=== PATIENT | female | born 1975 | race Caucasian/White ===

== ENCOUNTER → 2017-04-23 | Outpatient (CLI) | payer BC ==
--- NOTE | 2017-04-27 07:51 | MM ---
Reason for exam: screening (asymptomatic). Last mammogram was performed 4 years and 10 months ago. History: Family history of breast cancer in maternal grandmother at age 88. Saline implants in both breasts, 2012. Physical Findings: A clinical breast exam by your physician is recommended on an annual basis and results should be correlated with mammographic findings. MG Screening Mammo Implant/CAD Bilateral CC, MLO, and ID view(s) were taken. Prior study comparison: July 07, 2012, bilateral digital screening mammo w/CAD. The breast tissue is heterogeneously dense. This may lower the sensitivity of mammography. Retropectoral saline implants. No significant changes when compared with prior studies. ASSESSMENT: Negative, BI-RAD 1 RECOMMENDATION: Routine screening mammogram of both breasts in 1 year.
== END | disposition home or self-care (01) ==
LOC: RADMAMWWP 15:28
PROVIDERS: ATTEND Obstetrics & Gynecology
DX: Z12.31 Encounter for screening mammogram for malignant neoplasm of breast (principal)
CPT/HCPCS: 77067

== ENCOUNTER → 2019-02-27 | Outpatient (CLI) | payer BC ==
--- NOTE | 2019-02-27 13:48 | MR ---
EXAMINATION TYPE: MR lumbar spine wo con DATE OF EXAM: 02/27/2019 COMPARISON: NONE HISTORY: Sacroilitis per order. Low back pain for over 6 months per patient. TECHNIQUE: Multiplanar, multisequence imaging of the lumbar spine is performed without IV contrast. FINDINGS: Sagittal images of the lumbar spine show vertebral body heights and alignment to appear sat isfactory. The intervertebral discs demonstrate normal heights and hydration. Small disc herniation L 5-S1 level. The conus medullaris is low-lying ending at labeled inferior L2 level without suspicious signal or clumping of lumbosacral nerve roots. The bone marrow signal intensity is within normal li mits. Axial images at L5-S1 level show fikb-ga-ihfjgeik facet arthropathy bilaterally with broad-based cent ral disc protrusion minimally effacing the anterior thecal sac. There is mild left greater than right bilateral anterior inferior neural foraminal narrowing. The paraspinal spinal muscle bulk is mainta ined. No suspicious incidental retroperitoneal findings. IMPRESSION: Low-lying conus and Mild degenerative change lumbosacral junction otherwise fairly unrema rkable study
== END | disposition home or self-care (01) ==
LOC: RADMRIMAIN 12:35
PROVIDERS: ATTEND Family Medicine
DX: M47.817 Spondylosis without myelopathy or radiculopathy, lumbosacral region (principal); M46.1 Sacroiliitis, not elsewhere classified
CPT/HCPCS: 72148

== ENCOUNTER → 2020-06-14 | Outpatient (CLI) | payer BC ==
--- NOTE | 2020-06-17 11:19 | MM ---
Reason for exam: screening (asymptomatic). Last mammogram was performed 3 years and 2 months ago. History: Family history of breast cancer in maternal grandmother at age 88. Saline implants in both breasts, 2012. Physical Findings: A clinical breast exam by your physician is recommended on an annual basis and results should be correlated with mammographic findings. MG 3D Screen Mammo Imp/Cad Bilateral CC, MLO, and ID view(s) were taken. Prior study comparison: April 23, 2017, bilateral MG screening mammo implant/CAD. July 07, 2012, bilateral digital screening mammo w/CAD. The breast tissue is heterogeneously dense. This may lower the sensitivity of mammography. There is no discrete abnormality. Bilateral subpectoral implants redemonstrated. ASSESSMENT: Benign, BI-RAD 2 RECOMMENDATION: Routine screening mammogram of both breasts in 1 year.
== END | disposition home or self-care (01) ==
LOC: RADMAMWWP 13:20
PROVIDERS: ATTEND Family Medicine
DX: Z12.31 Encounter for screening mammogram for malignant neoplasm of breast (principal); Z80.3 Family history of malignant neoplasm of breast
CPT/HCPCS: 77063; 77067

== ENCOUNTER → 2022-06-24 | Outpatient (CLI) | payer BC ==
--- NOTE | 2022-06-24 08:29 | MM ---
Reason for Exam: Additional evaluation requested from abnormal screening. Last screening mammogram was performed less than 1 month ago. Patient History: Menarche at age 18. First Full-Term at age 23. Patient has history of breast feeding. 2012, Bilateral Implants. Maternal grandmother had breast cancer, age 88. Risk Values: Rosmery 5 year model risk: 0.7%. NCI Lifetime model risk: 7.9%. Prior Study Comparison: 07/07/2012 Bilateral Screening Mammogram, [facility]. 04/23/2017 Bilateral Screening Mammogram, [facility]. 06/14/2020 Bilateral Screening Mammogram, [facility]. 06/19/2022 Bilateral MG 3D screen mammo imp/cad., [facility]. Tissue Density: The breast tissue is heterogeneously dense. This may lower the sensitivity of mammography. Findings: Analyzed By CAD. Bilateral retropectoral saline implants. No new suspicious mass or calcifications within either breast. Asymmetries within both breasts do not persist with compression. Overall Assessment: Negative, BI-RAD 1 Management: Screening Mammogram of both breasts in 1 year. Electronically signed and approved by: Rasheed Hunt D.O.
== END | disposition home or self-care (01) ==
LOC: RADMAMWWP 07:36
PROVIDERS: ATTEND Obstetrics & Gynecology
DX: R92.8 Other abnormal and inconclusive findings on diagnostic imaging of breast (principal); Z80.3 Family history of malignant neoplasm of breast
CPT/HCPCS: 77062; 77066

== ENCOUNTER → 2023-09-23 | Outpatient (CLI) | payer BC ==
--- NOTE | 2023-10-20 12:41 | MM ---
Reason for Exam: Screening (asymptomatic). Last mammogram was performed 1 year(s) and 3 month(s) ago. Patient History: Menarche at age 18. First Full-Term at age 23. Patient has history of breast feeding. 2013, Bilateral Implants. Maternal grandmother had breast cancer, age 88. Mother had breast cancer, age 71. Risk Values: Rosmery 5 year model risk: 1.5%. NCI Lifetime model risk: 15.9%. Prior Study Comparison: 06/14/2020 Bilateral Screening Mammogram, [facility]. 06/19/2022 Bilateral MG 3D screen mammo imp/cad., [facility]. 06/24/2022 Bilateral MG 3D work up w/cad w/imp [facility], [facility]. Tissue Density: The breasts are heterogeneously dense, which may obscure small masses. Findings: Analyzed By CAD. Bilateral breast implants appear intact. Right breast: There is no suspicious group of microcalcifications or new suspicious mass. Left breast: There is no suspicious group of microcalcifications or new suspicious mass. Overall Assessment: Negative, BI-RAD 1 Management: Screening Mammogram of both breasts in [address] [facility] will attempt to contact patient to return for supplemental views and ultrasound if indicated. Patient should continue monthly self-breast exams. A clinical breast exam by your physician is recommended on an annual basis. This exam should not preclude additional follow-up of suspicious palpable abnormalities. Note on Rosmery scores and lifetime risk: 1. A Rosmery score greater than 3% is considered moderate risk. If this is the case, consider specialist referral to assess eligibility for a risk reducing agent. 2. If overall lifetime risk for the development of breast cancer is 20% or higher, the patient may qualify for future screening with alternating mammogram and breast MRI. Electronically signed and approved by: Jagdeep Ahuja DO
== END | disposition home or self-care (01) ==
LOC: RADMAMWWP 12:00
PROVIDERS: ATTEND Family Medicine
DX: Z12.31 Encounter for screening mammogram for malignant neoplasm of breast
CPT/HCPCS: 77063; 77067